=== PATIENT | male | born 1960 | race Caucasian/White ===

== ENCOUNTER 2023-01-18 15:24 | Emergency (ER) | payer BC ==
[2023-01-18 15:33] VITALS: RESP 18; BMI 23.0
[2023-01-18] MEDS ORDERED: SODIUM CHLORIDE 1,000 ML IV STA (15:38)
[2023-01-18] MEDS ORDERED: ONDANSETRON 4 MG/2 ML VIAL IVPB ONE (15:38)
[2023-01-18] MEDS ORDERED: ACETAMINOPHEN 1000 MG/100 ML BAG IVPB ONE (15:39)
[2023-01-18] MEDS ORDERED: ONDANSETRON 4 MG/2 ML VIAL ONE (15:46)
[2023-01-18] MEDS ORDERED: ACETAMINOPHEN INJECTION 100 ML IVPB ONE (15:47)
[2023-01-18 16:09] LABS: HEMATOCRIT 42.1 % (35.4-49); HEMOGLOBIN 14.9 G/dL (11.7-16.9); MCH 34.5 pg (25.7-33.7); MCHC 35.4 g/dl (32.0-35.9); MEAN CELL VOLUME 97.5 fl (80-96); MEAN PLT VOLUME 8.3 fl (7.5-11.1); PLATELET COUNT 130.6 10^3/uL (134-434); RBC 4.32 10^6/uL (4.00-5.60); WHITE BLOOD COUNT 5.2 10^3/uL (4.0-10.8)
[2023-01-18 16:36] LABS: ALBUMIN 3.8 g/dl (3.4-5.0); BILIRUBIN,TOTAL 0.8 mg/dl (0.2-1); CALCIUM 8.5 mg/dl (8.5-10); CREATININE 1.2 mg/dl (0.55-1.3); TOT PROT 6.7 g/dl (6.4-8.2)
[2023-01-18 16:55] LABS: PLATELET ESTIMATE SLT DECREASE
[2023-01-18] MEDS ORDERED: SODIUM CHLORIDE 1,000 ML IV ONE (17:15)
[2023-01-18] MEDS ORDERED: MECLIZINE HCL 25 MG TABLET (FP) PO ONE (17:15)
[2023-01-18] MEDS ORDERED: MECLIZINE HCL 25 MG TABLET (FP) ONE (18:14)
[2023-01-18 19:29] VITALS: BP 106/63; PULSE 86; TEMP 100.1
== END 2023-01-18 19:57 | disposition home or self-care (01) ==
LOC: FER 15:24
PROC: 3E0333Z Introduction of Anti-inflammatory into Peripheral Vein, Percutaneous Approach (ICD-10-PCS; principal; 2023-01-18)
PROC: 3E033GC Introduction of Other Therapeutic Substance into Peripheral Vein, Percutaneous Approach (ICD-10-PCS; 2023-01-18)
PROC: 3E0337Z Introduction of Electrolytic and Water Balance Substance into Peripheral Vein, Percutaneous Approach (ICD-10-PCS; 2023-01-18)
DX: R42 Dizziness and giddiness (principal); E86.0 Dehydration; E87.1 Hypo-osmolality and hyponatremia
CPT/HCPCS: 0241U-QW; 36415; 71045-TC-FY; 80053; 81003; 84484; 85027; 99285-25